=== PATIENT | female | born 1940 | race Caucasian/White ===

== ENCOUNTER 2017-10-15 23:54 | Inpatient (IN) | payer OTHER, MEDICARE ==
[~2017-10-15] VITALS: Ht 152.4 cm; Wt 54.0 kg
[2017-10-16 00:10] VITALS: BP 155/85; PULSE 90; RESP 18; TEMP 97.8
[2017-10-16] MEDS ORDERED: TETANUS/DIPHTHERIA TOXOID ADULT 0.5 ML VIAL IM ONE (00:30)
[2017-10-16 00:44] LABS: AUTOMATED NEUTROPHIL # 3.7 TH/MM3 (1.8-7.7); BASOPHIL # 0.1 TH/MM3 (0-0.2); BASOPHIL % 0.7 % (0.0-2.0); EOSINOPHIL # 0.2 TH/MM3 (0-0.4); EOSINOPHIL % 2.8 % (0.0-4.0); HEMATOCRIT 38.4 % (35.0-46.0); LYMPH % 31.3 % (9.0-44.0); LYMPHOCYTE # 2.2 TH/MM3 (1.0-4.8); MEAN CELL VOLUME 98.2 FL (80.0-100.0); MEAN CORPUSCULAR HEMOGLOBIN 33.2 PG (27.0-34.0); MEAN CORPUSCULAR HGB CONC 33.8 % (32.0-36.0); MEAN PLATELET VOLUME 8.7 FL (7.0-11.0); MONO % 12.3 % (0.0-8.0); MONOCYTE # 0.9 TH/MM3 (0-0.9); NEUT % 52.9 % (16.0-70.0); PLATELET COUNT 206 TH/MM3 (150-450); RED BLOOD COUNT 3.91 MIL/MM3 (4.00-5.30); RED CELL DISTRIBUTION WIDTH 12.9 % (11.6-17.2)
--- NOTE | 2017-10-16 00:45 | PD ---
HPI Chief Complaint: Psychiatric Symptoms Time Seen by Provider: 00:25 Travel History International Travel<30 days: No Contact w/Intl Traveler<30days: No Traveled to known affect area: No History of Present Illness HPI 77-year-old female presents under Scott act initiated by the Police Department. The patient reports that her father was recently hospitalized after heart attack. She reports that she has been upset about that and the fact that her sister will not give her any information. She feels like she has been increasingly neglected ignored by her family including her . She reports that in an effort to receive attention from her this evening she used the blunt side of a knife in order to cut her left wrist. Her then called the police and she was placed under Scott act. She reports that she has been depressed and anxious about her life events, no aggravating or relieving factors. She reports that her has been giving her her prescribed lorazepam in excessive amounts in order to help with her anxiety. She denies any desire to hurt herself or anyone else. She denies any illicit substance use. She has no other complaints at this time. Last tetanus vaccination unknown. [facility] Past Medical History Cardiovascular Problems: Yes Diabetes: Yes Social History Alcohol Use: No Tobacco Use: No Substance Use: No Allergies-Medications (Allergen,Severity, Reaction): Coded Allergies: No Known Allergies (Unverified , 10/16/17) Review of Systems Except as stated in HPI: all other systems reviewed are Neg Physical Exam Narrative GENERAL: Well-developed well-nourished female who is anxious and tearful. SKIN: Warm and dry. Superficial linear abrasion left wrist. HEAD: Atraumatic. Normocephalic. EYES: Pupils equal and round. No scleral icterus. No injection or drainage. ENT: No nasal bleeding or discharge. Mucous membranes pink and moist. NECK: Trachea midline. No JVD. CARDIOVASCULAR: Regular rate and rhythm. No murmur appreciated. RESPIRATORY: No accessory muscle use. Clear to auscultation. Breath sounds equal bilaterally. GASTROINTESTINAL: Abdomen soft, non-tender, nondistended. Hepatic and splenic margins not palpable. MUSCULOSKELETAL: No obvious deformities. No clubbing. No cyanosis. No edema. NEUROLOGICAL: Awake and alert. No obvious cranial nerve deficits. Motor grossly within normal limits. Normal speech. PSYCHIATRIC: Depressed, anxious, tearful. Data Data Last Documented VS Vital Signs Date Time Temp Pulse Resp B/P (MAP) Pulse Ox O2 Delivery O2 Flow Rate FiO2 10/16/17 00:10 97.8 90 18 155/85 (108) Orders Orders Complete Blood Count With Diff (10/16/17 00:26) Comprehensive Metabolic Panel (10/16/17 00:26) Thyroid Stimulating Hormone (10/16/17 00:26) Psych Screen (10/16/17 00:26) Drug Screen, Random Urine (10/16/17:26) Alcohol (Ethanol) (10/16/17 00:26) Tetanus/Diphtheria Tox Adult (Tetanus/Di (10/16/17 00:30) Labs Laboratory Tests Test 10/16/17 00:10 10/16/17 00:48 White Blood Count 7.0 TH/MM3 Red Blood Count 3.91 MIL/MM3 Hemoglobin 13.0 GM/DL Hematocrit 38.4 % Mean Corpuscular Volume 98.2 FL Mean Corpuscular Hemoglobin 33.2 PG Mean Corpuscular Hemoglobin Concent 33.8 % Red Cell Distribution Width 12.9 % Platelet Count 206 TH/MM3 Mean Platelet Volume 8.7 FL Neutrophils (%) (Auto) 52.9 % Lymphocytes (%) (Auto) 31.3 % Monocytes (%) (Auto) 12.3 % Eosinophils (%) (Auto) 2.8 % Basophils (%) (Auto) 0.7 % Neutrophils # (Auto) 3.7 TH/MM3 Lymphocytes # (Auto) 2.2 TH/MM3 Monocytes # (Auto) 0.9 TH/MM3 Eosinophils # (Auto) 0.2 TH/MM3 Basophils # (Auto) 0.1 TH/MM3 CBC Comment DIFF FINAL Differential Comment Blood Urea Nitrogen 21 MG/DL Creatinine 0.84 MG/DL Random Glucose 124 MG/DL Total Protein 7.5 GM/DL Albumin 4.0 GM/DL Calcium Level 8.5 MG/DL Alkaline Phosphatase 86 U/L Aspartate Amino Transf (AST/SGOT) 17 U/L Alanine Aminotransferase (ALT/SGPT) 24 U/L Total Bilirubin 0.2 MG/DL Sodium Level 139 MEQ/L Potassium Level 4.3 MEQ/L Chloride Level 107 MEQ/L Carbon Dioxide Level 22.3 MEQ/L Anion Gap 10 MEQ/L Estimat Glomerular Filtration Rate 66 ML/MIN Thyroid Stimulating Hormone 3rd Gen 4.330 uIU/ML Ethyl Alcohol Level LESS THAN 3 MG/DL Urine Opiates Screen NEG Urine Barbiturates Screen POS Urine Amphetamines Screen NEG Urine Benzodiazepines Screen NEG Urine Cocaine Screen NEG Urine Cannabinoids Screen NEG MDM Medical Decision Making Medical Screen Exam Complete: Yes Emergency Medical Condition: Yes Medical Record Reviewed: Yes Differential Diagnosis Adjustment reaction, acute psychosis, major depressive disorder, depressive disorder not otherwise specified Narrative Course 77-year-old female presents under Scott act for psychiatric evaluation. Tetanus status updated. Mental health screening discussed with the patient. Psychiatric screen ordered. Drug screen is positive for barbiturates otherwise unremarkable. Medically cleared. Diagnosis Primary Impression: Medical clearance for psychiatric admission Neo Lucero Oct 16, 2017 00:45
[2017-10-16 01:22] LABS: ALT (GPT) 24 U/L (10-53); AST (GOT) 17 U/L (15-37); BICARBONATE 22.3 MEQ/L (21.0-32.0); BLOOD UREA NITROGEN 21 MG/DL (7-18); CALCIUM 8.5 MG/DL (8.5-10.1); CHLORIDE 107 MEQ/L (98-107); CREATININE 0.84 MG/DL (0.50-1.00); GLOMERULAR FILTRATION RATE 66 ML/MIN (>89); GLUCOSE,RANDOM 124 MG/DL (74-106); SODIUM (NA) 139 MEQ/L (136-145)
[2017-10-16 01:32] LABS: ALKALINE PHOSPHATASE 86 U/L (45-117); TOTAL BILIRUBIN ADULT 0.2 MG/DL (0.2-1.0); TOTAL PROTEIN 7.5 GM/DL (6.4-8.2)
--- NOTE | 2017-10-16 11:10 | PD.PSY.CON ---
Provisional Diagnosis Admission Date Date of consultation 10/16/2017 [place] I. 1. Adjustment disorder, unspecified [place] II. Deferred History of Present Illness Service Psychiatry Consult Requested By Emergency department Reason for Consult Tyler awad Primary Care Physician Unknown HPI Ms. Orta is a 77-year-old female with no reported past psychiatric history who was brought to the ED under a Scott act by [facility] office alleging that the patient's called 911 because she was holding a knife to her wrist. Scott act also alleges that the patient "has taken more of her Lorazepam than she should have." Urine toxicology was positive only for barbiturates and not for benzodiazepines. Reviewing the electronic medical record, it appears this is patient's first visit to [facility]. Patient seen and examined. Chart reviewed. Case discussed with nursing staff. On my examination this morning the patient is clinically sober. She denies putting a knife to her wrist. She does have a very superficial scratch on her left forearm but says that she sustained this when picking up a knife from the counter. She denies any suicidal or homicidal ideation, intent or plan and contracts for safety. She says "I love life. I'm planning a alliance party for my 12- year-old granddaughter." The patient alleges that "my drinks too much and we get into arguments" about his drinking. She further alleges that the has been "pushing Lorazepam on me so he can drink." I can elicit no depressive or hypomanic/manic symptoms. She denies any audiovisual hallucinations. I can elicit no delusional material. The remainder of the psychiatric ROS is negative. No acute physical complaints. Past psychiatric history: The patient denies a history of psychiatric diagnosis. She denies a history of inpatient or outpatient psychiatric treatment. She denies a history of psychiatric admissions. She denies a history of suicide attempts. Family history: The patient denies a family history of mental illness or suicide. Chemical dependency history: The patient denies any abuse of drugs or alcohol. Social history: Patient lives with her of 30 years. She has 3 children from a previous relationship. She has some college and previously worked before retiring at the [employer] and later for a [employer]. She denies any history. Denies any legal history. She does keep a handgun a .45 [place] and [place] for target practice but has never had a suicide plan involving a gun. She is a [employer]. Review of Systems Except as stated in HPI: all other systems reviewed are Neg Past Family Social History Coded Allergies: No Known Allergies (Unverified , 10/16/17) Past Medical History See electronic medical record Patient reports that she receives Lorazepam from her primary care doctor Patient's Strengths (min. 2) Attending to basic needs. Verbally fluent. Physical Exam Physical examination completed by ED provider. On my examination today, the patient appears to be in no acute physical distress. No motor abnormalities noted. No signs of intoxication or withdrawal noted. She does have a superficial scratch on her left forearm about midway up the forearm. Labs and vital signs reviewed: Vital Signs Vital Signs Date Time Temp Pulse Resp B/P (MAP) Pulse Ox O2 Delivery O2 Flow Rate FiO2 10/16/17 00:10 97.8 90 18 155/85 (108) Lab Results Test 10/16/17 00:10 10/16/17 00:48 White Blood Count 7.0 TH/MM3 Red Blood Count 3.91 MIL/MM3 Hemoglobin 13.0 GM/DL Hematocrit 38.4 % Mean Corpuscular Volume 98.2 FL Mean Corpuscular Hemoglobin 33.2 PG Mean Corpuscular Hemoglobin Concent 33.8 % Red Cell Distribution Width 12.9 % Platelet Count 206 TH/MM3 Mean Platelet Volume 8.7 FL Neutrophils (%) (Auto) 52.9 % Lymphocytes (%) (Auto) 31.3 % Monocytes (%) (Auto) 12.3 % Eosinophils (%) (Auto) 2.8 % Basophils (%) (Auto) 0.7 % Neutrophils # (Auto) 3.7 TH/MM3 Lymphocytes # (Auto) 2.2 TH/MM3 Monocytes # (Auto) 0.9 TH/MM3 Eosinophils # (Auto) 0.2 TH/MM3 Basophils # (Auto) 0.1 TH/MM3 CBC Comment DIFF FINAL Differential Comment Blood Urea Nitrogen 21 MG/DL Creatinine 0.84 MG/DL Random Glucose 124 MG/DL Total Protein 7.5 GM/DL Albumin 4.0 GM/DL Calcium Level 8.5 MG/DL Alkaline Phosphatase 86 U/L Aspartate Amino Transf (AST/SGOT) 17 U/L Alanine Aminotransferase (ALT/SGPT) 24 U/L Total Bilirubin 0.2 MG/DL Sodium Level 139 MEQ/L Potassium Level 4.3 MEQ/L Chloride Level 107 MEQ/L Carbon Dioxide Level 22.3 MEQ/L Anion Gap 10 MEQ/L Estimat Glomerular Filtration Rate 66 ML/MIN Thyroid Stimulating Hormone 3rd Gen 4.330 uIU/ML Ethyl Alcohol Level LESS THAN 3 MG/DL Urine Opiates Screen NEG Urine Barbiturates Screen POS Urine Amphetamines Screen NEG Urine Benzodiazepines Screen NEG Urine Cocaine Screen NEG Urine Cannabinoids Screen NEG Mental Status Examination Appearance: Appropriate Consciousness: Alert Orientation: x4 Motor Activity: Other (No motor abnormalities noted) Speech: Unremarkable Language: Adequate Fund of Knowledge: Adequate Attention and Concentration: Adequate Memory: Unremarkable (Grossly intact on clinical exam) Mood: Appropriate Affect: Appropriate Thought Process & Associations: Intact, Logical, Linear Thought Content: Appropriate Hallucination Type: None Delusion Type: None Suicidal Ideation: No (Unclear whether patient is reliable to contract for safety) Suicidal Plan: No Suicidal Intention: No Homicidal Ideation: No Homicidal Plan: No Homicidal Intention: No Mental Status Exam Remarks Insight and judgment are unclear Assessment & Plan Problem List: (1) Adjustment disorder, unspecified ICD Codes: F43.20 - Adjustment disorder, unspecified Assessment & Plan 77-year-old female with psychiatric history as detailed above who presents under the Scott act. Scott act alleges that the patient threatened to cut herself with a knife and has been overusing her Lorazepam; this is apparently based on collateral from . Patient presents quite a different narrative , saying that her has a severe drinking problem and has been forcing her to take Lorazepam so that he can drink unmolested as they often argue about his drinking. She says that the knife injury was accidental. Collateral information is needed here to clarify patient's suicide risk. Nurse is endeavoring to obtain collateral information from patient's children, but this is presently wanting. In the absence of reassuring collateral, Scott act remains in place for now. I did educate patient regarding the [place] act for her if she does believe that he has a drinking problem. I have also recommended outpatient mental health follow-up for the patient herself. I have recommended abstinence from any substances of abuse. I have counseled her regarding warning signs for need to return to the psychiatric emergency room. Thank you very much for this consultation. Discharge Planning Scott act remains in place pending further collateral Problem Qualifiers (1) Adjustment disorder, unspecified: Qualified Codes: F43.20 - Adjustment disorder, unspecified Harvinder Abreu MD Oct 16, 2017 11:10
[2017-10-16] MEDS ORDERED: LORazepam 2 MG TAB PO PRN (16:45)
[2017-10-16] MEDS ORDERED: NICOTINE 21 MG/24 HR PATCH T-DERMAL PRN (16:45)
[2017-10-16] MEDS ORDERED: LORazepam 1 MG TAB PO PRN (16:45)
[2017-10-16] MEDS ORDERED: cloNIDine HCL 0.1 MG TAB PO PRN (16:45)
[2017-10-16] MEDS ORDERED: LORazepam 2 MG/ML VIAL IM PRN ×4 (16:45)
[2017-10-16] MEDS ORDERED: FLUMAZENIL 0.5 MG/5 ML VIAL IV PUSH PRN (16:45)
[2017-10-16] MEDS ORDERED: ALUMINUM/MAGNESIUM/SIMETH 30 ML CUP PO PRN (16:45)
[2017-10-16] MEDS ORDERED: MAGNESIUM HYDROXIDE SUSP 30 ML CUP PO PRN (16:45)
[2017-10-16] MEDS ORDERED: METF500T4 PO (17:13)
[2017-10-16] MEDS ORDERED: ROSU40 PO (17:14)
[2017-10-16] MEDS ORDERED: LEVO.05 PO (17:14)
[2017-10-16] MEDS ORDERED: VENL75TA PO (17:16)
[2017-10-16] MEDS ORDERED: VENL150C39 PO (17:16)
[2017-10-16] MEDS ORDERED: LORA1TAB12 PO (17:17)
[2017-10-16] MEDS ORDERED: LOSA50TA PO (17:18)
[2017-10-16] MEDS ORDERED: DICY20TA10 PO (17:19)
[2017-10-16] MEDS ORDERED: BUTA1CAP PO (17:20)
[2017-10-16 17:51] VITALS: BP 169/87; PULSE 101; RESP 20; O2SAT 97
[2017-10-16 17:55] VITALS: BP 157/92; PULSE 95; RESP 16; TEMP 97.8; O2SAT 95
[2017-10-17] MEDS: ACETAMINOPHEN 325 MG TAB PO PRN ×3 (00:54→19:48)
[2017-10-17 06:08] VITALS: BP 138/68; PULSE 87; RESP 18; TEMP 98.9; O2SAT 95
[2017-10-17 10:19] LABS: BICARBONATE 24.4 MEQ/L (21.0-32.0); BLOOD UREA NITROGEN 12 MG/DL (7-18); CALCIUM 9.4 MG/DL (8.5-10.1); CHLORIDE 103 MEQ/L (98-107); CHOLESTEROL 136 MG/DL (120-200); CREATININE 0.99 MG/DL (0.50-1.00); GLOMERULAR FILTRATION RATE 55 ML/MIN (>89); GLUCOSE,RANDOM 151 MG/DL (74-106); SODIUM (NA) 140 MEQ/L (136-145); TRIGLYCERIDES 120 MG/DL (42-150)
[2017-10-17 10:21] LABS: CHOLESTEROL/ HDL RATIO 1.94 RATIO; HDL CHOLESTEROL 69.9 MG/DL (40.0-60.0); LDL CHOLESTEROL 42 MG/DL (0-99)
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
--- NOTE | 2017-10-17 11:43 | PD.CONS ---
HPI Service [facility] Hospitalists Consult Requested By Primary Care Physician Unknown Diagnoses: (1) Hypothyroidism (2) Diabetes mellitus type 2 in nonobese (3) Hypertension (4) Hyperlipidemia (5) Adjustment disorder, unspecified History of Present Illness Mrs. Orta is a 77-year-old female. She is admitted secondary to adjustment disorder with depression. At baseline she has hypothyroidism, hypertension, hyperlipidemia, and diabetes mellitus type 2. She is on metformin 250 mg p.o. twice daily. Blood sugars have been slightly elevated while here. Additionally hypothyroidism shows lack of control with a suppressed T4 and an elevated TSH. Adjustments in metformin and Synthroid were discussed with the patient and she is agreeable to these adjustments. Outpatient follow-up should occur on both of these matters but further inpatient monitoring will not be needed. Review of Systems Constitutional: DENIES: Fatigue, Fever, Night Sweats Eyes: DENIES: Diplopia, Eye inflammation, Eye pain Ears, nose, mouth, throat: DENIES: Hearing loss, Vertigo, Nasal discharge Respiratory: DENIES: Cough, Wheezing, Shortness of breath Cardiovascular: DENIES: Chest pain, Palpitations, Syncope Gastrointestinal: DENIES: Abdominal pain, Black stools, Bloody stools Musculoskeletal: DENIES: Joint pain, Muscle aches, Stiffness, Joint Swelling Integumentary: DENIES: Abnormal pigmentation, Pruritus, Rash, Nail changes Hematologic/lymphatic: DENIES: Bruising, Lymphadenopathy Immunologic/allergic: DENIES: Eczema, Urticaria Neurologic: DENIES: Abnormal gait, Headache, Paresthesias Psychiatric: COMPLAINS OF: Depression, DENIES: Anxiety, Hallucinations Past Family Social History Allergies: Coded Allergies: No Known Allergies (Unverified , 10/16/17) Past Medical History Hypertension Hyperlipidemia Diabetes mellitus type 2 Hypothyroidism Migraine headaches Depression Anxiety Past Surgical History Pyloric stenosis surgery Right inguinal hernia repair Tubal ligation Appendectomy Reported Medications Reported Meds & Active Scripts Active Reported Fioricet (Gmliqhobtq-Rifsfziuoziav-Dfqiieio) 50-300-40 Mg Cap 1-2 Cap PO Q6H PRN Dicyclomine (Dicyclomine HCl) 20 Mg Tab 20 Mg PO TID Losartan (Losartan Potassium) 50 Mg Tab 50 Mg PO DAILY Lorazepam 1 Mg Tab 1 Mg PO DAILY PRN Venlafaxine ER 24 HR (Venlafaxine HCl) 150 Mg Cap 150 Mg PO DAILY Crestor (Rosuvastatin Calcium) 40 Mg Tab 40 Mg PO DAILY Synthroid (Levothyroxine Sodium) 50 Mcg Tab 50 Mcg PO DAILY Metformin ER (Metformin HCl) 500 Mg Anna 500 Mg PO DAILY With evening meal Active Ordered Medications Administered Medications Medications (Trade) Dose Ordered Sig/Mynor Route PRN Reason Start Time Stop Time Status Last Admin Dose Admin Acetaminophen (Tylenol) 650 mg Q4H PRN PO Pain 1-5 or Temp >101F 10/16/17 16:45 10/17/17 06:23 Lorazepam (Ativan) 1 mg Q4H PRN PO CIWA 8 - 10 10/16/17 16:45 10/16/17 21:18 Family History Gastric ulcer disease in patient's father, he was also an alcoholic Social History No smoking No alcohol abuse No illicit drug abuse Physical Exam Vital Signs Vital Signs Date Time Temp Pulse Resp B/P (MAP) Pulse Ox O2 Delivery O2 Flow Rate FiO2 10/17/17 06:08 98.9 87 18 138/68 (91) 95 10/16/17 18:00 10/16/17 17:55 97.8 95 16 157/92 (113) 95 10/16/17 17:51 101 20 169/87 (114) 97 Room Air Physical Exam GENERAL: NAD, A&Ox3 HEAD: Normocephalic. NECK: Supple, trachea midline. No lymphadenopathy. EYES: No scleral icterus. No injection or drainage. CARDIOVASCULAR: Regular rate and rhythm without murmurs, gallops, or rubs. RESPIRATORY: Breath sounds equal bilaterally. No accessory muscle use. GASTROINTESTINAL: Abdomen soft, non-tender, nondistended. MUSCULOSKELETAL: No cyanosis, or edema. SKIN: Warm and dry. NEURO: No focal neurological deficitis. Laboratory Laboratory Tests Test 10/17/17 07:27 Blood Urea Nitrogen 12 Creatinine 0.99 Random Glucose 151 Calcium Level 9.4 Sodium Level 140 Potassium Level 3.9 Chloride Level 103 Carbon Dioxide Level 24.4 Anion Gap 13 Estimat Glomerular Filtration Rate 55 Triglycerides Level 120 Cholesterol Level 136 LDL Cholesterol 42 HDL Cholesterol 69.9 Cholesterol/HDL Ratio 1.94 Result Diagram: 10/16/17 0010 10/17/17 0727 Assessment and Plan Problem List: (1) Diabetes mellitus type 2 in nonobese ICD Code: E11.9 - Type 2 diabetes mellitus without complications (2) Hypertension ICD Code: I10 - Essential (primary) hypertension (3) Hypothyroidism ICD Code: E03.9 - Hypothyroidism, unspecified (4) Hyperlipidemia ICD Code: E78.5 - Hyperlipidemia, unspecified (5) Adjustment disorder, unspecified ICD Code: F43.20 - Adjustment disorder, unspecified (6) Medical clearance for psychiatric admission ICD Code: Z00.8 - Encounter for other general examination Status: Acute Assessment and Plan 77-year-old female admitted secondary to depression Uncontrolled hypothyroidism Synthroid increased from 50 mcg to 88 mcg daily Follows an outpatient No need for further monitoring as an inpatient Diabetes mellitus type 2 Follow blood sugars Insulin sliding scale Diabetic diet Metformin increased from 250 mg p.o. twice daily to 500 mg p.o. twice daily Monitor for diarrhea and return to 250 mg p.o. twice daily if diarrhea occurs Hypertension Continue baseline treatment Follow blood pressures Adjust treatments as needed Hyperlipidemia Continue present treatment Follow as an outpatient Migraine headaches No change to baseline treatments DVT prophylaxis Patient ambulatory Discharge planning Patient may discharge with increased Synthroid and increase metformin as listed above Patient is medically clear and stable for discharge after cleared by psych Medical team signing off at this time Problem Qualifiers (1) Adjustment disorder, unspecified: Qualified Codes: F43.21 - Adjustment disorder with depressed mood Frederic Willson MD Oct 17, 2017 11:43
[2017-10-17] MEDS ORDERED: METF500 PO (11:44)
[2017-10-17] MEDS ORDERED: SYNT88TA PO (11:44)
[2017-10-17 17:08] LABS: HEMOGLOBIN A1C 6.2 % (4.3-6.0)
[2017-10-17 17:26] VITALS: BP 150/70; PULSE 95; RESP 18; TEMP 97.9; O2SAT 96
[2017-10-17] MEDS: metFORMIN HCL 500 MG TAB PO SCH (17:30)
[2017-10-17] MEDS ORDERED: metFORMIN HCL 500 MG TAB PO SCH (18:00)
[2017-10-18] MEDS ORDERED: LEVOTHYROXINE SODIUM 88 MCG TAB PO SCH (06:00)
[2017-10-18] MEDS ORDERED: LEVOTHYROXINE SODIUM 50 MCG TAB PO SCH (06:00)
[2017-10-18 06:01] VITALS: BP 141/67; PULSE 72; RESP 17; TEMP 97.8; O2SAT 94
[2017-10-18] MEDS: metFORMIN HCL 500 MG TAB PO SCH ×2 (08:26→17:40)
[2017-10-18] MEDS ORDERED: VENLAFAXINE HCL XR 75 MG CAP PO SCH (09:00)
[2017-10-18] MEDS ORDERED: LOSARTAN 50 MG TAB PO SCH (09:00)
[2017-10-18] MEDS ORDERED: ATORVASTATIN 40 MG TAB PO SCH (09:00)
[2017-10-18] MEDS ORDERED: VENL150C39 PO (11:20)
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
[2017-10-18 17:43] VITALS: BP 132/72; PULSE 99; RESP 16; TEMP 97.8; O2SAT 95
== END 2017-10-18 18:34 | disposition home or self-care (01) | DRG 882 ==
LOC: NEPJ 23:54 → NEDA 10-16 16:32 → H250 10-16 17:54
PROVIDERS: ADMIT Psychiatry & Neurology Psychiatry; ATTEND Psychiatry & Neurology Psychiatry
DX: F43.20 Adjustment disorder, unspecified (principal); E11.9 Type 2 diabetes mellitus without complications; I10 Essential (primary) hypertension; E03.9 Hypothyroidism, unspecified; E78.5 Hyperlipidemia, unspecified; Z79.84 Long term (current) use of oral hypoglycemic drugs; G43.909 Migraine, unspecified, not intractable, without status migrainosus; F41.9 Anxiety disorder, unspecified
CPT/HCPCS: 80048; 80053; 80061; 80307; 83036; 84439; 84443; 85025; 90471; 90714